=== PATIENT | male | born 1955 | race Caucasian/White ===

== ENCOUNTER 2016-09-17 06:34 | Inpatient (IN) | payer BC ==
--- NOTE | 2016-09-16 10:32 | GHP ---
[f rep st] PREOP HISTORY AND PHYSICAL DATE OF ADMISSION: 09/17/2016 PROBLEM: Right hip arthritis. HISTORY OF PRESENT ILLNESS: The patient is a 61-year-old man admitted for a right total hip arthropl asty. He is from [place], [place]. He developed pain in his right hip in April of 2016. It has p rogressed. He is having pain every day and he is having night pain. He is using Tylenol and ibuprof en. His activities are limited. He underwent a left hip [place] hip resurfacing arthroplasty in [place], [place] in 2009. He has had an excellent result. PAST MEDICAL HISTORY: He is treated for elevated cholesterol and hypertension. No history of previo us MRSA staph infections. No history of heart disease, stents, DVT, hepatitis, or sleep apnea. CURRENT MEDICATIONS: Atorvastatin 20 mg per day. Lisinopril/hydrochlorothiazide 10 mg/12.5 mg daily . ALLERGIES: Drug allergies: None. Metal allergy: None. Latex allergy: None. BODY AFTER ALLERGIES: SOCIAL HISTORY: The patient is . He does not smoke cigarettes and occasionally drinks alcoho l. He is recently retired. FAMILY HISTORY: Noncontributory. PHYSICAL EXAMINATION: GENERAL: He is a healthy-appearing man, height 5 feet 6 inches. Weight 156 p ounds. BMI 25.2. EYES: Conjunctivae and sclerae are clear. Pupils are round and reactive. MOUTH: Good oral hygiene. No loose teeth. CHEST: Clear. HEART: Regular rhythm. No murmurs. EXTREMIT IES: Pertinent findings limited to his right hip. He has full hip extension, 100 degrees of flexion . External rotation 20 degrees. Internal rotation 0 degrees. IMAGING: Films show severe degenerative arthritis of his right hip. He is bone on bone. He has per ipheral osteophytes. Good quality bone in the proximal femur. His left BHR looks excellent. IMPRESSION: 1. Right hip advanced degenerative arthritis. 2. Six and half years status post successful left BHR. 3. Treatment for hypertension. 4. Treatment for elevated cholesterol. PLAN: He will undergo a right total hip arthroplasty. The surgery has been described to him includi ng the risks, complications, expectations, and recovery time. He was originally interested in anothe r hip resurfacing procedure. However his bone size is small, and I am not sure that the proper small size implant is available for him. For that reason, I recommend a conventional total hip arthroplas ty. The surgery has been described to him including the risks, complications, expectations, and sruthi very time. I have discussed with him the risk of infection, leg length inequality, sciatic nerve inj ury and dislocation. He understands that he is young for any type of artificial hip joint and may re quire a future revision surgery. All his questions have been answered, and he consents to surgery. Copy requested to: MD Suzie Carpenter [place] /[id number]/MODL
[~2016-09-17 06:34] MED LIST: ACETAMINOPHEN 325 MG TAB PO ONE; CEFAZOLIN 2 GM/DEXTR 100 ML IV ONE; CHLORHEXIDINE GLUC HIBICLENS 118 ML BTL TP ONE; DEXAMETHASONE 4 MG/ML VIAL IVP ONE; FAMOTIDINE 20 MG TAB PO ONE; POVIDONE-IODINE 20 ML in SODIUM CL IRRIG SOLUTION 500 ML IRR ONE; ROPI/epiNEPH/KETOROLAC JOINT COCKTAIL IU ONE; TRANEXAMIC ACID 1,400 MG in NS 100 ML IV ONE
[2016-09-17] MEDS ORDERED: LIDOCAINE 1% 5 ML SDV ONE (06:36)
[2016-09-17] MEDS ORDERED: SKIN ADHESIVE (DERMABOND) 1 EACH TP ONE (07:42)
[2016-09-17] MEDS ORDERED: ceFAZolin 1 GM VIAL ONE (07:43)
[2016-09-17] MEDS ORDERED: ceFAZolin 1 GM/5 ML SYR ONE (07:47)
[2016-09-17] MEDS ORDERED: fentaNYL 100 MCG/2 ML INJ ONE (07:51)
[2016-09-17] MEDS ORDERED: MIDAZOLAM 2 MG/2 ML VIAL ONE ×2 (07:51→08:05)
[2016-09-17] MEDS ORDERED: ROCURONIUM 50 MG/5 ML VIAL ONE (07:51)
[2016-09-17] MEDS ORDERED: PROPOFOL/EMULSION 500 MG/50 ML BOTTLE IV ONE (07:51)
[2016-09-17] MEDS ORDERED: ONDANSETRON 4 MG/2 ML VIAL ONE (08:57)
[2016-09-17] MEDS ORDERED: DEXAMETHASONE 4 MG/ML VIAL ONE (08:57)
--- NOTE | 2016-09-17 09:46 | POSTOPPROG ---
Post Op Note Date of Operation: 09/17/16 Surgeon: Luis Enrique Yoon Stump Shooter: Roberto Anesthesiologist: Andrew Anesthesia: IV Sedation, Spinal Post-op Diagnosis: right hip arthritis Procedure: right AURELIO Inf/Abcess present in the surg proc area at time of surgery?: No EBL: [id number]
[2016-09-17] MEDS ORDERED: DIPHENOXYLATE/ATROPINE LOMOTIL 1 TAB PO PRN (10:02)
[2016-09-17] MEDS ORDERED: PROMETHAZINE HCL 25 MG SUPPR PR PRN (10:02)
[2016-09-17] MEDS ORDERED: PROMETHAZINE HCL 25 MG/ML VIAL IVP PRN (10:02)
[2016-09-17] MEDS ORDERED: CYCLOBENZAPRINE 10 MG TAB PO PRN (10:02)
[2016-09-17] MEDS ORDERED: ONDANSETRON DISINTEGRATING 4 MG TAB PO PRN (10:02)
[2016-09-17] MEDS ORDERED: PHARMACY PAIN CONSULT 1 EA MISC PRN (10:02)
[2016-09-17] MEDS ORDERED: BISACODYL 10 MG SUPP PR PRN (10:02)
[2016-09-17] MEDS ORDERED: diphenhydrAMINE 25 MG CAP PO PRN (10:02)
[2016-09-17] MEDS ORDERED: oxyCODONE IR 5 MG TAB PO PRN (10:02)
[2016-09-17] MEDS ORDERED: TEMAZEPAM 15 MG CAP PO PRN (10:02)
[2016-09-17] MEDS ORDERED: NS 500 ML IV PRN (10:02)
[2016-09-17] MEDS ORDERED: LACTULOSE 20 GM/30 ML UDCUP PO PRN (10:02)
[2016-09-17] MEDS ORDERED: METOCLOPRAMIDE 10 MG/2 ML VIAL IVP PRN (10:02)
[2016-09-17] MEDS ORDERED: POLYETHYLENE GLYCOL 3350 17 GM PKT PO PRN (10:02)
[2016-09-17] MEDS ORDERED: KETOROLAC 30 MG/1 ML SDV IVP PRN (10:02)
[2016-09-17] MEDS ORDERED: MAGNESIUM HYDROXIDE 30 ML UDCUP PO PRN (10:02)
[2016-09-17] MEDS ORDERED: ONDANSETRON 4 MG/2 ML VIAL IVP PRN (10:02)
--- NOTE | 2016-09-17 11:02 | DX ---
Portable AP Supine Pelvis, Centered at the Hips, at 10:27 AM Clinical History: 61 year-old male in the PACU after a right hip arthroplasty. COMPARISON STUDY: None currently available. FINDINGS: The patient has had a prior [place] type resurfacing left hip arthroplasty, which is melani tomically aligned, and there is a new complete right hip arthroplasty with femoral and intramedullary components which are anatomically aligned. There is normally-expected postoperative air in the soft tissues. There are some monitoring lead lines projected over the pelvis, and there are some phlebolit hs also observed. IMPRESSION: Status post bilateral hip arthroplasties, remote on the left and new on the right, each a natomically aligned.
[2016-09-17] MEDS: LR 1,000 ML IV SCH ×2 (12:38→21:32)
[2016-09-17] MEDS: TRANEXAMIC ACID 650 MG TAB PO SCH ×3 (12:47→21:31)
[2016-09-17] MEDS: ACETAMINOPHEN 325 MG TAB PO SCH ×3 (12:47→23:12)
--- NOTE | 2016-09-17 13:08 | GOP ---
[f rep st] OPERATIVE REPORT DATE OF OPERATION: 09/17/2016 SURGEON: Luis Enrique Yoon MD GARDEN IMPLEMENT MECHANIC: 1. Ignacio Coleman CFA. 2. Tyson Connors, PAC. ANESTHESIA: Combination of Marcaine spinal and IV sedation. ANESTHESIOLOGIST: Zachariah Morales MD. PREOPERATIVE DIAGNOSIS: Right hip advanced degenerative arthritis. POSTOPERATIVE DIAGNOSIS: Right hip advanced degenerative arthritis. PROCEDURE PERFORMED: Right total hip arthroplasty, Oxinium femoral head on highly cross-linked polye thylene cup liner. FINDINGS: DESCRIPTION OF PROCEDURE: The patient was given 2 g of IV Ancef preoperatively within 60 minutes of surgery. He also received IV tranexamic acid at a dose of 20 mg/kg. He was placed on the operating room table and given spinal anesthesia with Marcaine by Dr. Morales. He was then placed supine and gi chris IV sedation. A Haque catheter was not used. A SAMI stocking and SCD were applied to the nonopera tive leg. He was rolled to the left lateral decubitus position. The position was secured with the p egboard table attachment. An axillary roll was used, and all pressure points were carefully padded. I was careful to lock his pelvis in a vertical position. His perineum was isolated with plastic adh esive drapes. His right hip and right lower extremity were prepped with ChloraPrep. They were drape d free using sterile sheets, stockinette, and Ioban plastic drape. The [employer] time-out was performed to verify the correct surgical side, and the cor rect patient identity. The [place] time-out was also performed. I made a 5-inch straight oblique posterolateral hip skin incision. Subcutaneous tissues were sharply divided, and hemostasis was obtained using electrocautery. His fascia daniel was identified and split along the axis of its fibers. I then curved posteriorly and proximally and split the fascia of the gluteus jesse and bluntly split the muscle fibers in line with their orientation. The Charnley gab f-retaining retractor was inserted. His sciatic nerve was located, partially exposed, and protected throughout the procedure. The external rotators and the posterior hip capsule were divided as separa te layers at the base of the femoral neck, tagged, and reflected posteriorly. A smooth 1/8-inch Stei nmann pin was inserted vertically into the ilium, superior to the acetabulum. A 1/8-inch drill bit w as inserted vertically into the greater trochanter and parallel to the first pin. The distance betwe en the 2 was measured for leg length reference. His femoral head was dislocated posteriorly. Severe degenerative changes were present on the femoral head. The patient originally was interested in hip resurfacing. Out of interest, I went ahead and checked his neck diameter. He was either a 44 mm or 46 mm femoral head component. Neither of these sizes is available from [employer] any longer. His femoral neck was osteotomized at the approp riate level and inclination. I was careful to preserve all the posterior capsule and most of the anterior capsule. The remnant of his damaged labrum was excised. I prepared the femur first. This allowed me to optometrist owner the amount of natural femoral neck anteversion. This, in turn, allowed me to later determine the correct amount of cup anteversion. He only had ap proximately 5 degrees of natural femoral neck anteversion. The canal was opened laterally with a box chisel. I reamed and broached sequentially up to size 12. I used a size 12 broach as a trial stem. I was careful to lateralize adequately. Appropriate retractors were inserted to expose his acetabulum. The acetabulum was reamed sequentiall y up to 51 mm. I selected a [employer] R3 solid-backed hemispherical shell. This was tapped s ecurely into place in the proper degree of inclination and anteversion. I used the transverse acetab ular ligament and other acetabular bony landmarks to help me properly orient the cup. Fixation was t ight, and I did not think supplemental screw fixation was necessary. I inserted a screw-in metal dom e hole plug. I performed a series of trial reductions to determine length and stability. I concluded that the siz e 12 stem with a 0 neck length and a 32 mm head with a 20-degree lipped trial liner gave me the prope r combination of appropriate length and good anterior and posterior stability. The 20-degree lip [employer] R3 highly cross-linked polyethylene liner was inserted and tapped securely into place. I dialed the 20-degree overhang so that it was directly posterior. I selected a [employer] Synergy stem and a size 12 with standard offset. This was inserted, press-fit, an d was very tight. I did 1 final trial reduction, and confirmed that the 0 neck length with a 32 mm h ead was the proper combination. I selected a [employer] Oxinium head with an outside diameter of 32 mm and a neck length of 0 mm. The head was tapped securely onto the clean trunnion. The aceta bulum was irrigated and cleaned, and the hip was reduced 1 final time. He had excellent anterior and posterior stability and appropriate length. 40 mL of the joint anesthetic cocktail were injected into the capsule, the deep musculature, and the subcutaneous tissues along the skin edges. The joint was thoroughly irrigated 1 final time with a di lute Betadine solution. His sciatic nerve was reinspected and looked unharmed. The external rotator s and the posterior hip capsule were repaired in separate layers with #[address] ill holes in the greater trochanter. This provided a strong posterior capsular and external rotator repair. The fascia daniel was closed first with several interrupted [id number] #2 FiberWire sutur es, followed by a running #2 barbed Ethicon Stratafix PDO suture. Subcutaneous tissues were closed w ith a running 0 barbed Ethicon Stratafix Monoderm suture. The skin was closed with a running 3-0 bar bed Ethicon Stratafix Monoderm subcuticular suture. The skin edges were reapproximated and sealed wi th Dermabond glue. The wound was covered with a strip of Telfa, and everything was held in place wit h a piece of clear plastic Tegaderm. A long-leg SAMI stocking and SCD were applied to his right lower extremity. He wore a stocking and SC D on the opposite leg during the procedure. An abduction pillow was placed between his knees. He wa s awakened from anesthesia, and rolled to the supine position on his [facility]. He was taken t o PACU in satisfactory condition. There were no recognized intraoperative complications. The sponge and needle count were correct on 2 occasions. I used a [employer] R3 solid-backed acetabular shell with an outside diameter of 52 mm. The li ner was a [employer] R3 20-degree lipped highly cross-linked liner with an inside diameter of 3 2 mm. The femoral component was a standard offset [employer] Synergy stem and a size 12 and pr ess-fit. The femoral head was a [employer] Oxinium head with a 0 neck length and a 32 mm outsi de diameter. Ignacio Coleman and Nagi Connors acted as surgical assistants. Their assistance was a medical necess ity. Copy requested to: Dr. Bacilio Larsen [place] /[id number]/[facility] [place]
[2016-09-17] MEDS: ceFAZolin 2 GM/DEXTROSE 100 ML IV SCH ×2 (14:04→21:22)
[2016-09-17] MEDS: FAMOTIDINE 20 MG TAB PO SCH (20:18)
[2016-09-17] MEDS: SENNOSIDES/DOCUSATE SODIUM TAB PO SCH (20:18)
[2016-09-17] MEDS: ASPIRIN 325 MG TAB PO SCH (20:18)
[2016-09-17] MEDS: traMADol 50 MG TAB PO PRN (20:21)
[2016-09-17] MEDS ORDERED: ATORVASTATIN CALCIUM 20 MG TAB PO SCH (21:00)
[2016-09-17 23:21] VITALS: O2SAT 95
[2016-09-18 03:07] VITALS: RESP 18
[2016-09-18] MEDS: traMADol 50 MG TAB PO PRN ×2 (03:10→08:54)
[2016-09-18 05:10] LABS: HEMATOCRIT 37.9 % (40.0-51.0)
[2016-09-18] MEDS: ACETAMINOPHEN 325 MG TAB PO SCH (06:17)
[2016-09-18 07:31] VITALS: BP 141/88; PULSE 69; TEMP 97.6
[2016-09-18] MEDS: SENNOSIDES/DOCUSATE SODIUM TAB PO SCH (08:52)
[2016-09-18] MEDS: TRANEXAMIC ACID 650 MG TAB PO SCH (08:53)
[2016-09-18] MEDS: FAMOTIDINE 20 MG TAB PO SCH (08:54)
[2016-09-18] MEDS: ASPIRIN 325 MG TAB PO SCH (08:54)
[2016-09-18] MEDS ORDERED: LISINOPRIL/HCTZ 10/12.5 MG 1 EA TAB PO SCH (09:00)
[2016-09-18] MEDS ORDERED: Herbals/Supplements -Info Only PO SCH (09:00)
[2016-09-18] MEDS ORDERED: FERROUS SULFATE 140 MG TAB.ER PO SCH (09:00)
[2016-09-18] MEDS ORDERED: MULTIVITAMINS 1 EACH TAB PO SCH (09:00)
[2016-09-18] MEDS ORDERED: FLUTICASONE NASAL 120 SPRAYS/16 GM MDI EACHNARE SCH (09:00)
--- NOTE | 2016-09-18 09:52 | SOAPPROG ---
SOAP Progress Note Assessment/Plan: Assessment: Afebrile. Awake and alert. Mild pain. Excellent progress with PT. Dsg is dry. Min swelling. Sciatic nerve intact. H/H is good. Films look good. Plan: DC today. 09/18/16 09:52 Objective: Vital Signs Temp Pulse Resp BP Pulse Ox 36.4 C 69 18 141/88 H 95 09/18/16 07:30 09/18/16 07:30 09/18/16 07:30 09/18/16 07:30 09/18/16 07:30 Laboratory Results 09/18/16 04:51 09/17/16 09/18/16 09/19/16 05:59 05:59 05:59 Intake Total 3175 Output Total 900 Balance 2275 ICD10 Worksheet Patient Problems: Problems Problem Status Diagnosed Osteoarthritis of right hip Acute
--- NOTE | 2016-09-18 10:17 | GDS ---
[f rep st] DISCHARGE SUMMARY ADMISSION DIAGNOSIS: Right hip advanced degenerative arthritis. DISCHARGE DIAGNOSIS: Right hip advanced degenerative arthritis. OPERATION PERFORMED: 09/17/2016, a right total hip arthroplasty. POSTOPERATIVE COMPLICATIONS: None. CONDITION ON DISCHARGE: Improved. DESCRIPTION OF HOSPITAL COURSE: The patient was admitted to the hospital on the morning of surgery. His admission CBC, electrolytes, BUN and creatinine were all normal. The same day, under combinatio n of Marcaine spinal anesthesia and IV sedation, he underwent a right total hip arthroplasty. Postop eratively, a Haque catheter was not used and there were no problems with urination. He was treated w ith multimodal DVT prophylaxis. On the 1st postoperative day, his hemoglobin and hematocrit were 13. 0 and 37.9. He was seen by Physical Therapy and made excellent progress with ambulation and stairs. By the time of discharge, he was afebrile, he was independent walking with a cane and his wound was clean and dry. DISPOSITION: The patient is discharged to a local motel. He lives in [place], [place]. I will see him in the office tomorrow. He may progress to full weightbearing as tolerated on the right. Use a n abduction pillow in bed for 3 weeks. Continue aspirin 325 mg p.o. daily for 21 days. If there are any problems, he is to call me at the office. Copy requested to: Dr. Michael Larsen [place] /[id number]/MODL
== END 2016-09-18 11:04 | disposition home or self-care (01) | DRG 470 ==
LOC: F3N 06:34
PROVIDERS: ADMIT Orthopaedic Surgery; ATTEND Orthopaedic Surgery
PROC: 0SR904Z Replacement of Right Hip Joint with Ceramic on Polyethylene Synthetic Substitute, Open Approach (ICD-10-PCS; principal; 2016-09-17 08:15)
DX: M16.11 Unilateral primary osteoarthritis, right hip (principal); Z96.642 Presence of left artificial hip joint; I10 Essential (primary) hypertension; E78.5 Hyperlipidemia, unspecified
CPT/HCPCS: 97116-GP; 97161-GP; 97165-GO; 97530-GP; J0171; J0690; J1100; J1885; J2250; J2405; J2550; J2704; J2795; J3010